=== PATIENT | female | born 1975 | race Caucasian/White ===

== ENCOUNTER → 2018-02-15 19:06 | Outpatient (CLI) | payer BC | END | disposition home or self-care (01) | LOC: D.MAMMO 15:30 | DX: Z12.31 Encounter for screening mammogram for malignant neoplasm of breast (principal) ==

== ENCOUNTER 2018-05-22 09:21 | Emergency (ER) | payer BC ==
[~2018-05-22] VITALS: Ht 157.5 cm; Wt 68.2 kg
[2018-05-22 09:32] VITALS: Ht 157.5 cm; Wt 68.2 kg
[2018-05-22] MEDS ORDERED: CELEXA20 MG PO (09:33)
[2018-05-22 12:12] VITALS: BP 123/070
== END 2018-05-22 12:14 | disposition home or self-care (01) ==
LOC: D.ER 09:21
DX: M54.16 Radiculopathy, lumbar region (principal); W10.9XXA Fall (on) (from) unspecified stairs and steps, initial encounter; Y93.89 Activity, other specified; Y92.019 Unspecified place in single-family (private) house as the place of occurrence of the external cause